=== PATIENT | female | born 1985 | race Caucasian/White ===

== ENCOUNTER 2017-02-19 09:16 | Emergency (ER) | payer MEDICAID ==
[~2017-02-19] VITALS: Ht 175.3 cm; Wt 91.4 kg
[2017-02-19 09:39] VITALS: BP 127/79
--- NOTE | 2017-02-19 09:50 | NUR ---
32/F BIB FAMILY C/O MID ABDOMINAL PAIN 02/13, N/V/D, FEVER X1D.SKIN IS PINK/WARM/DRY; AAOX4 WITH EVEN AND STEADY GAIT; LUNGS CLEAR BL;PATIENT STATES PAIN OF 02/13 AT THIS TIME; PATIENT POSITIONED FOR COMFORT; HOB ELEVATED; BEDRAILS UP X2; BED DOWN. MINESH SHANKS MADE AWARE OF PT STATUS. Addendum: 02/19/17 at 1010 by [email or web address] pt sts removed gall bladder x 14 yrs ago.
--- NOTE | 2017-02-19 10:04 | NUR ---
Patient being evaluated by DR ACUNA at bedside.
[2017-02-19] MEDS ORDERED: NACL 0.9% 1,000 ML IV ONE (10:15)
[2017-02-19] MEDS ORDERED: FAMOTIDINE 20 MG/2 ML VIAL IVP ONE (10:15)
[2017-02-19] MEDS ORDERED: ONDANSETRON 4 MG/2 ML VIAL IVP ONE ×2 (10:15→11:40)
[2017-02-19 10:28] LABS: BASOPHILS # (AUTO) 0.2 K/uL (0.00-0.22); BASOPHILS % (AUTO) 3.4 % (0.0-2.0); EOSINOPHILS % (AUTO) 0.3 % (0.0-4.0); HEMOGLOBIN 15.3 g/dL (12.0-16.0); LYMPHOCYTES # (AUTO) 0.4 K/uL (2.5-16.5); LYMPHOCYTES % (AUTO) 8.3 % (20.5-51.1); MEAN CORPUSCULAR HEMOGLOBIN 28 pg (27-31); MEAN CORPUSCULAR HGB CONC 33 g/dL (33-37); MEAN CORPUSCULAR VOLUME 86 fL (80-94); MONOCYTES # (AUTO) 0.1 K/uL (0.8-1.0); MONOCYTES % (AUTO) 2.4 % (1.7-9.3); NEUTROPHILS # (AUTO) 4.7 K/uL (1.8-7.7); NEUTROPHILS % (AUTO) 85.6 % (42.2-75.2); PLATELET COUNT (AUTO) 212 K/uL (140-450); RED BLOOD CELL COUNT(AUTO) 5.45 MIL/uL (4.20-5.40); RED CELL DISTRIBUTION WIDTH 11.6 % (11.6-13.7); WHITE BLOOD COUNT (AUTO) 5.4 K/uL (4.8-10.8)
[2017-02-19 10:38] LABS: ANION GAP 9.2 (8-16); CREATININE 0.8 mg/dL (0.6-1.3); POTASSIUM 3.2 mmol/L (3.5-5.1)
--- NOTE | 2017-02-19 10:50 | NUR ---
Note jane in EDM - 02/19/17 at 1053 by [email or web address] Patient STS PAIN 09/13 AT THIS TIME. PT appears to be resting comfortably in bed. Vital Signs within normal limits. Respirations even and unlabored.WILL CONTINUE TO MONITOR.
--- NOTE | 2017-02-19 10:50 | NUR ---
Patient STS PAIN 5/10 AT THIS TIME. PT appears to be resting comfortably in bed. BP 143/69; DENIES HEADACHE OR DIZINESS AT THIS TIME. MD MADE AWARE. Respirations even and unlabored.WILL CONTINUE TO MONITOR.
[2017-02-19 10:53] LABS: ALBUMIN 3.5 g/dL (3.4-5.0); TOTAL BILIRUBIN 1.7 mg/dL (0.0-1.0)
[2017-02-19] MEDS ORDERED: POTASSIUM CHLORIDE 20% 40 MEQ/15 ML UDC PO ONE (11:15)
[2017-02-19] MEDS ORDERED: KETOROLAC 30 MG/ML VIAL IVP ONE (11:15)
--- NOTE | 2017-02-19 11:39 | NUR ---
PT C/O N/V. NOTIFIED DR BAUER.
[2017-02-19 12:10] VITALS: BP 133/89
--- NOTE | 2017-02-19 12:10 | NUR ---
Patient discharged with v/s stable. Written and verbal after care instructions given and explained. Patient alert, oriented and verbalized understanding of instructions. Ambulatory with steady gait. All questions addressed prior to discharge. ID band removed. Patient advised to follow up with PMD. Rx of LOMOTIL, ZOFRAN &CIPRO given. Patient educated on indication of medication including possible reaction and side effects. Opportunity to ask questions provided and answered.
== END 2017-02-19 12:10 | disposition home or self-care (01) ==
LOC: MED 09:16
DX: A08.39 Other viral enteritis (principal); Z90.49 Acquired absence of other specified parts of digestive tract
CPT/HCPCS: 36415; 80053; 81002; 81025; 83605; 85025; 87040; 96361; 96374; 96375; 96376; 99284; J1885; J2405; J3490; J7030